=== PATIENT | female | born 1950 | race American Indian/Alaskan Native ===

== ENCOUNTER 2021-10-31 08:44 | Emergency (ER) | payer MEDICARE ==
[2021-10-31 09:05] VITALS: BP 135/71
--- NOTE | 2021-10-31 10:02 | XRay Report ---
CHEST 2 VIEWS INDICATION / CLINICAL INFORMATION: Chest Pain. COMPARISON: None available. FINDINGS: SUPPORT DEVICES: None. HEART / MEDIASTINUM: No significant abnormality. LUNGS / PLEURA: No significant pulmonary or pleural abnormality. No pneumothorax. ADDITIONAL FINDINGS: No significant additional findings. IMPRESSION: 1. No acute findings. Signer Name: Doug Munson MD Signed: 10/31/2021 9:58 AM Workstation Name: [email or web address]
[2021-10-31 10:27] LABS: Basophils % (Auto) 0.6 % (0.0-1.8); Eosinophils % (Auto) 1.1 % (0.0-4.3); Hematocrit 41.4 % (30.3-42.9); Hemoglobin 13.6 gm/dl (10.1-14.3); Lymphocytes # (Auto) 0.6 K/mm3 (1.2-5.4); Lymphocytes % (Auto) 24.7 % (13.4-35.0); Mean Corpuscular HGB Conc 33 % (30-34); Mean Corpuscular Volume 90 fl (79-97); Monocytes # (Auto) 0.2 K/mm3 (0.0-0.8); Monocytes % (Auto) 8.6 % (0.0-7.3); Platelet Count 203 K/mm3 (140-440); Red Blood Count 4.62 M/mm3 (3.65-5.03); Red Cell Distribution Width 13.6 % (13.2-15.2)
[2021-10-31 10:37] LABS: INR 0.91 (0.87-1.13)
[2021-10-31 10:38] LABS: Partial Thromboplastin Time 28.3 Sec. (24.2-36.6)
[2021-10-31 10:44] LABS: Alanine Aminotransferase 11 units/L (7-56); Albumin 4.2 g/dL (3.9-5); BUN/Creatinine Ratio 14; Blood Urea Nitrogen 11 mg/dL (7-17); Calcium 9.2 mg/dL (8.4-10.2); Hemolysis Index 3
--- NOTE | 2021-11-01 08:54 | Electrocardiograph Report ---
[facility] Test Date: 2021-10-31 Test Time: 09:05:00 Pat Name: DOM STEPHENS Department: Room: Gender: F Ginner Helper: LUIS A : 1950 Requested By: ED DOC Order Number: [id number] Reading MD: Carlton Woods Measurements Intervals [place] Rate: 69 P: 54 [place]: 139 QRS: 45 QRSD: 84 T: 43 QT: 408 QTc: 438 Interpretive Statements Sinus rhythm Probable left atrial enlargement No previous ECG available for comparison Electronically Signed On 11-01-2021 8:53:21 EDT by Carlton Woods
== END 2021-10-31 11:11 | disposition left against medical advice (07) ==
LOC: ED 08:44
DX: G43.909 Migraine, unspecified, not intractable, without status migrainosus (principal); Z53.21 Procedure and treatment not carried out due to patient leaving prior to being seen by health care provider
CPT/HCPCS: 36415; 71046; 80053; 84484; 85025; 85610; 85730; 93005

== ENCOUNTER 2021-12-15 16:53 | Emergency (ER) | payer SELFPAY ==
[2021-12-15 17:23] VITALS: BP 149/90
--- NOTE | 2021-12-15 18:00 | Event Note ---
ED Screening Note Date of service: 12/15/21 Time: 17:57 ED Screening Note: This initial assessment/diagnostic orders/clinical plan/treatment(s) is/are subject to change based on patients health status, clinical progression and re- assessment by fellow clinical providers in the ED. Further treatment and workup at subsequent clinical providers discretion. Patient/guardian urged not to elope from the ED as their condition may be serious if not clinically assessed and managed. PAtient with history of early dementia that has been going on for over 6 months as well as migraines since morning. brought her in because she has also complained of dizziness, which is new/ The was placed on cyclobenzaprine on Thursday for left sided chest pain by primary doctor and wonders if that is causing her symptoms. He mental status has had no recent acute change. Initial orders include: My Active Orders 12/15/21 18:02 EKG (12 lead) Stat Complete Blood Count Auto Diff Stat Comprehensive Metabolic Panel Stat Lipase Stat Troponin T Stat 12/15/21 18:03 Tech to do EKG .once CT head/brain wo con Stat
[2021-12-15 19:02] LABS: Basophils % (Auto) 0.9 % (0.0-1.8); Eosinophils % (Auto) 1.1 % (0.0-4.3); Hematocrit 41.9 % (30.3-42.9); Hemoglobin 13.8 gm/dl (10.1-14.3); Lymphocytes # (Auto) 1.2 K/mm3 (1.2-5.4); Lymphocytes % (Auto) 36.9 % (13.4-35.0); Mean Corpuscular HGB Conc 33 % (30-34); Mean Corpuscular Volume 88 fl (79-97); Monocytes # (Auto) 0.3 K/mm3 (0.0-0.8); Monocytes % (Auto) 9.7 % (0.0-7.3); Platelet Count 202 K/mm3 (140-440); Red Blood Count 4.75 M/mm3 (3.65-5.03); Red Cell Distribution Width 13.4 % (13.2-15.2)
[2021-12-15 19:33] LABS: Alanine Aminotransferase 8 units/L (7-56); Albumin 4.3 g/dL (3.9-5); BUN/Creatinine Ratio 20; Blood Urea Nitrogen 12 mg/dL (7-17); Calcium 9.4 mg/dL (8.4-10.2); Hemolysis Index 6
--- NOTE | 2021-12-15 20:19 | Cat Scan Report ---
CT HEAD WITHOUT CONTRAST INDICATION / CLINICAL INFORMATION: Dizziness. Headache. TECHNIQUE: All CT scans at this location are performed using CT dose reduction for ALARA by means of automated exposure control. COMPARISON: None available. FINDINGS: BRAIN PARENCHYMA: No acute intracranial hemorrhage. No evidence of recent infarct. No mass effect or midline shift. There is age-appropriate generalized atrophy. VENTRICULAR SYSTEM/EXTRA-AXIAL SPACES: Ventricles are normal for age. No extra-axial fluid collection . ORBITS: Normal as visualized. SKELETAL SYSTEM/SOFT TISSUES: Normal bones and soft tissues. PARANASAL SINUSES/MASTOID AIR CELLS: No significant abnormality. ADDITIONAL FINDINGS: None. IMPRESSION: 1. No acute intracranial abnormality. Signer Name: Jeremi Andrew MD Signed: 12/15/2021 8:15 PM Workstation Name: [id number]
== END 2021-12-15 23:11 | disposition left against medical advice (07) ==
LOC: ED 16:53
DX: R51.9 Headache, unspecified (principal); R42 Dizziness and giddiness; Z53.21 Procedure and treatment not carried out due to patient leaving prior to being seen by health care provider
CPT/HCPCS: 36415; 70450; 80053; 83690; 84484; 85025

== ENCOUNTER 2021-12-17 15:59 | Emergency (ER) | payer MEDICARE ==
--- NOTE | 2021-12-17 16:34 | XRay Report ---
CHEST 2 VIEWS INDICATION / CLINICAL INFORMATION: Chest Pain. COMPARISON: 10/31/2021 FINDINGS: SUPPORT DEVICES: None. HEART / MEDIASTINUM: No significant abnormality. LUNGS / PLEURA: No significant pulmonary or pleural abnormality. No pneumothorax. ADDITIONAL FINDINGS: No significant additional findings. IMPRESSION: 1. No acute findings. Signer Name: Josef Nagy MD Signed: 12/17/2021 4:30 PM Workstation Name: [id number]
[2021-12-17 17:19] LABS: Basophils % (Auto) 0.8 % (0.0-1.8); Eosinophils % (Auto) 0.5 % (0.0-4.3); Hemoglobin 13.6 gm/dl (10.1-14.3); Lymphocytes % (Auto) 31.8 % (13.4-35.0); Mean Corpuscular HGB Conc 33 % (30-34); Mean Corpuscular Volume 87 fl (79-97); Monocytes # (Auto) 0.3 K/mm3 (0.0-0.8); Monocytes % (Auto) 8.6 % (0.0-7.3); Platelet Count 208 K/mm3 (140-440); Red Cell Distribution Width 13.5 % (13.2-15.2)
[2021-12-17 18:02] LABS: Alanine Aminotransferase 9 units/L (7-56); Albumin 4.5 g/dL (3.9-5); Blood Urea Nitrogen 12 mg/dL (7-17); Calcium 9.5 mg/dL (8.4-10.2); Hemolysis Index 4
[2021-12-17 18:17] LABS: BUN/Creatinine Ratio 17
[2021-12-17] MEDS ORDERED: ACETAMINOPHEN 325 MG TAB PO ONE (21:50)
[2021-12-17] MEDS ORDERED: PANTOPRAZOLE 40 MG TAB PO ONE (21:50)
[2021-12-17] MEDS ORDERED: ASPIRIN 325 MG TAB PO ONE (21:50)
--- NOTE | 2021-12-17 21:51 | Emergency Department Report ---
ED General Adult HPI - General Chief complaint: Chest Pain Stated complaint: Central and left-sided chest pain Time Seen by Provider: 12/17/21 21:43 Source: patient, RN notes reviewed Mode of arrival: Ambulatory Limitations: No Limitations - History of Present Illness Initial comments: During the history and physical examination, I am chaperoned by nurse Madalyn Abdi This is a pleasant and cooperative 71-year-old female who presents to the department today with a complaint of a few days central and left-sided chest pain. The pain does not radiate to the back, arms or neck. There is no vomiting, diaphoresis or exertional shortness of breath. The patient denies travel, surgery, immobilization, DVT and pulmonary embolism risk factors. Repor ts that there is no family history of CAD, [place], DVT or PE that she is aware of. She has not had a stress test or cardiac evaluation recently that she is aware of. She denies additional injuries and complaints -: days(s) Location: chest Radiation: non-radiation Severity scale (0 -10): 4 Consistency: intermittent Improves with: cold therapy Worsens with: none Associated Symptoms: denies other symptoms - Related Data Previous Rx's Medication Instructions Recorded Last Taken Type Aspirin [Aspirin BABY CHEW TAB] 81 mg PO QDAY #30 tab.chew 12/17/21 Unknown Rx Allergies Allergy/AdvReac Type Severity Reaction Status Date / Time No Known Allergies Allergy Verified 12/17/21 16:10 ED Review of Systems ROS: Stated complaint: CHEST PAIN, BACK PAIN Other details as noted in HPI Comment: All other systems reviewed and negative Cardiovascular: chest pain ED Past Medical Hx - Past Medical History Hx Headaches / Migraines: Yes Additional medical history: High cholesterol, Confusion, Broken legs - Surgical History Hx Appendectomy: Yes Additional Surgical History: Cyst right ear, Right hip, right leg - Medications Home Medications: Home Medications Medication Instructions Recorded Confirmed Last Taken Type Aspirin [Aspirin BABY CHEW TAB] 81 mg PO QDAY #30 tab.chew 12/17/21 Unknown Rx ED Physical Exam - General Limitations: No Limitations General appearance: alert, anxious - Head Head exam: Present: atraumatic, normocephalic - Eye Eye exam: Present: normal appearance, EOMI. Absent: nystagmus - ENT ENT exam: Present: normal exam, normal orophraynx, mucous membranes moist, normal external ear exam - Neck Neck exam: Present: normal inspection, full ROM. Absent: tenderness, meningismus - Respiratory Respiratory exam: Present: normal lung sounds bilaterally. Absent: respiratory distress, wheezes, rales, rhonchi, stridor, chest wall tenderness, decreased breath sounds - Cardiovascular Cardiovascular Exam: Present: regular rate, normal rhythm, normal heart sounds. Absent: bradycardia, tachycardia, irregular rhythm, systolic murmur, diastolic murmur, rubs, gallop - GI/Abdominal GI/Abdominal exam: Present: soft. Absent: distended, tenderness, guarding, rebound, rigid, pulsatile mass - Extremities Exam Extremities exam: Present: normal inspection, full ROM, other (2+ pulses noted in the bilateral upper and lower extremities. There is no palpable cord. negative Homans sign. Muscular compartments are soft. The pelvis is stable.). Absent: pedal edema, calf tenderness - Back Exam Back exam: Present: normal inspection. Absent: tenderness, CVA tenderness (R), CVA tenderness (L), paraspinal tenderness, vertebral tenderness - Neurological Exam Neurological exam: Present: alert, oriented X3, other (No facial droop. Tongue midline. Extraocular movements intact bilaterally. Facial sensation intact to light touch in V1, V2, V3 distribution bilaterally. 5 and a 5 strength in 4 extremities. Sensation intact to light touch in 4 extremities.). Absent: motor sensory deficit - Psychiatric Psychiatric exam: Present: anxious - Skin Skin exam: Present: warm, dry, intact, normal color. Absent: rash ED Course Vital Signs 12/17/21 12/17/21 12/17/21 16:07 22:01 23:19 Temperature 97.8 F 97.8 F Pulse Rate 76 86 73 Respiratory 16 16 15 Rate Blood Pressure 144/76 135/74 134/71 [Left] O2 Sat by Pulse 98 100 100 Oximetry - Reevaluation(s) Reevaluation #1: 12/17/21 23:06 Differential diagnosis, including but not limited to: GERD, gastritis, hiatal hernia, pneumonia, costochondritis, pneumothorax, acute coronary syndrome Assessment and plan: Elderly 71-year-old female, with atypical chest pain but abnormal EKG. Moderate risk for major adverse cardiac event as per heart score. The patient is not currently tachycardic, tachypneic or hypoxic, who denies DVT and pulmonary embolism risk factors, who is low risk by Wells criteria for pulmonary embolism Patient has equal pulses in the upper and lower extremities, no pulsatile abdominal mass, and an unremarkable x-ray of the chest, therefore, aortic disease is very unlikely. We recommend admission to the medical service for cardiac risk stratification to evaluate for acute coronary syndrome. Have thus far had multiple discussions with patient and at the bedside. Discussed recommendation for admission for the aforementioned. Discussed risks of leaving, including , disability, paralysis, permanent loss of quality of life, in the event of an AMA discharge. Patient currently presents is awake, alert, oriented, of sound mind and exhibits decision-making capacity. She is free from distracting injury, and able to articulate risks of an AMA discharge in her own words. After multiple repeat discussions, she is thus far agreeable/amenable to admission and hospitalization. I am currently awaiting callback from hospital physician to arrange admission We will treat the patient's symptoms Reevaluation #2: 12/17/21 23:13 After multiple repeat discussions, the patient is electing to sign out AGAINST MEDICAL ADVICE. Multiple discussions were had between myself, the patient's , up with Madalyn Abdi RN present as a witness. The risks of leaving, including , disability, paralysis permanent loss of quality of life are discussed with patient and family member. Patient is able to articulate risks of AMA discharge in her own words, is of sound mind, and exhibits decision- making capacity. The patient was instructed to return to the emergency room right away if and when she changes her mind. All questions answered. ED Medical Decision Making - Lab Data Result diagrams: 12/17/21 16:37 12/17/21 16:37 Vital Signs 12/17/21 12/17/21 16:07 22:01 Temperature 97.8 F 97.8 F Pulse Rate 76 86 Respiratory 16 16 Rate Blood Pressure 144/76 135/74 [Left] O2 Sat by Pulse 98 100 Oximetry Lab Results 12/17/21 12/17/21 Range/Units 16:37 16:37 WBC 3.1 L (4.5-11.0) K/mm3 RBC 4.70 (3.65-5.03) M/mm3 Hgb 13.6 (10.1-14.3) gm/dl Hct 41.0 (30.3-42.9) % MCV 87 (79-97) fl MCH 29 (28-32) pg MCHC 33 (30-34) % RDW 13.5 (13.2-15.2) % Plt Count 208 (140-440) K/mm3 Lymph % (Auto) 31.8 (13.4-35.0) % [place] % (Auto) 8.6 H (0.0-7.3) % Eos % (Auto) 0.5 (0.0-4.3) % Baso % (Auto) 0.8 (0.0-1.8) % Lymph # (Auto) 1.0 L (1.2-5.4) K/mm3 [place] # (Auto) 0.3 (0.0-0.8) K/mm3 Eos # (Auto) 0.0 (0.0-0.4) K/mm3 Baso # (Auto) 0.0 (0.0-0.1) K/mm3 Seg Neutrophils % 58.3 (40.0-70.0) % Seg Neutrophils # 1.8 (1.8-7.7) K/mm3 Sodium 142 (137-145) mmol/L Potassium 4.1 (3.6-5.0) mmol/L Chloride 102.5 (98-107) mmol/L Carbon Dioxide 25 (22-30) mmol/L Anion Gap 19 mmol/L BUN 12 (7-17) mg/dL Creatinine 0.7 (0.6-1.2) mg/dL Estimated GFR > 60 ml/min BUN/Creatinine Ratio 17 % Glucose 82 (65-100) mg/dL Calcium 9.5 (8.4-10.2) mg/dL Total Bilirubin 0.40 (0.1-1.2) mg/dL AST 18 (5-40) units/L ALT 9 (7-56) units/L Alkaline Phosphatase 84 (35-129) units/L Troponin T < 0.010 (0.00-0.029) ng/mL Total Protein 6.8 (6.3-8.2) g/dL Albumin 4.5 (3.9-5) g/dL Albumin/Globulin Ratio 2.0 % - EKG Data 12/17/21 23:03 The EKG is interpreted at 22: 00 Sinus rhythm, rate 76 bpm. Normal axis, normal P wave axis, left ventricular hypertrophy, incomplete right bundle branch block. Abnormal EKG. This is not a STEMI - Radiology Data Radiology results: pending, report reviewed, image reviewed CHEST 2 VIEWS INDICATION / CLINICAL INFORMATION: Chest Pain. COMPARISON: 10/31/2021 FINDINGS: SUPPORT DEVICES: None. HEART / MEDIASTINUM: No significant abnormality. LUNGS / PLEURA: No significant pulmonary or pleural abnormality. No pneumothorax. ADDITIONAL FINDINGS: No significant additional findings. IMPRESSION: 1. No acute findings. Signer Name: Josef Nagy MD Signed: 12/17/2021 3:30 PM Workstation Name: [id number] Critical care attestation.: If time is entered above; I have spent that time in minutes in the direct care of this critically ill patient, excluding procedure time. ED Disposition Clinical Impression: Nonspecific chest pain Disposition: LEFT AGAINST MEDICAL ADVICE Is pt being admited?: No Does the pt Need Aspirin: No Condition: Undetermined Instructions: Nonspecific Chest Pain, Adult Additional Instructions: As we discussed, you have left the hospital/emergency room AGAINST MEDICAL ADVICE. By leaving, you risked , disability, paralysis, permanent loss of quality of life. The ER is open 24 hours a day, 7 days a week. It never closes. Please return to the emergency room right away if and when you change your mind. If you decide not to return to the emergency room, please follow-up with the listed physician referrals as soon as possible. Follow-up with a hat body inspector as soon as possible Prescriptions: Aspirin [Aspirin BABY CHEW TAB] 81 mg PO QDAY #30 tab.chew Referrals: [facility] [Provider Group] - 3-5 Days [facility] [Provider Group] - 3-5 Days Forms: AMA Form Heart Score - HEART Score History: Slightly suspicious EKG: Non-specific Age: > 65 Risk factors: 1-2 risk factors Troponin: < normal limit HEART Score: 4 - EKG Read Time Time EKG Completed: 22:00 EKG Read Time: 22:00 - Critical Actions Critical Actions: 4-6 pts:12-16.6% risk of adverse cardiac event. Should be admitted
[2021-12-17 23:20] VITALS: BP 134/71
--- NOTE | 2021-12-20 12:08 | Electrocardiograph Report ---
[facility] Test Date: 2021-12-17 Test Time: 16:09:05 Pat Name: DOM STEPHENS Department: Room: Gender: F Nurses Medical Assistants Phlebotomists: LUIS A : 1950 Requested By: ABRAM ALVARES Order Number: [id number] Reading MD: Corona New Measurements Intervals [place] Rate: 76 P: 44 [place]: 130 QRS: 45 QRSD: 86 T: 53 QT: 399 QTc: 449 Interpretive Statements Sinus rhythm Probable left atrial enlargement Compared to ECG 10/31/2021 09:05:00 No significant changes Electronically Signed On 12-20-2021 9:08:15 PDT by Corona New
== END 2021-12-18 00:01 | disposition left against medical advice (07) ==
LOC: ED 15:59
DX: R07.9 Chest pain, unspecified (principal); Z90.89 Acquired absence of other organs
CPT/HCPCS: 36415; 71046; 80053; 84484; 85025; 93005; 99283; 99284